=== PATIENT | male | born 1955 | race Caucasian/White ===

== ENCOUNTER 2017-04-12 08:07 | Day surgery (SDC) | payer MEDICAID, OTHER ==
[2017-04-12] MEDS ORDERED: DIAZEPAM 5 MG TAB PO ONE (08:12)
[2017-04-12] MEDS ORDERED: diphenhydrAMINE 25 MG CAP PO ONE ×2 (08:12→09:01)
[2017-04-12] MEDS ORDERED: ASPIRIN EC 325 MG TAB PO ONE ×2 (08:12→09:01)
[2017-04-12] MEDS ORDERED: NS 1,000 ML IV ONE (08:12)
[2017-04-12] MEDS ORDERED: FAMOTIDINE 20 MG TAB PO ONE (08:12)
--- NOTE | 2017-04-12 08:59 | CPEKG ---
Heart Rate: 57 RR Interval: 1053 P-R Interval: 208 QRSD Interval: 110 QT Interval: 412 QTC Interval: 401 P [place]: 74 QRS [place]: -61 T Wave [place]: 66 EKG Severity - ABNORMAL ECG - EKG Impression: SINUS RHYTHM EKG Impression: LEFT ANTERIOR FASCICULAR BLOCK Electronically Signed By: Brian Collazo 14-Apr-2017 12:37:50
[2017-04-12] MEDS ORDERED: FAMOTIDINE 20 MG TAB ONE (09:01)
[2017-04-12] MEDS ORDERED: DIAZEPAM 5 MG TAB ONE (09:02)
[2017-04-12] MEDS ORDERED: LIDOCAINE 1% 300 MG/30 ML SDV ONE (09:14)
[2017-04-12] MEDS ORDERED: fentaNYL 100 MCG/2 ML INJ ONE (09:15)
[2017-04-12] MEDS ORDERED: MIDAZOLAM 2 MG/2 ML VIAL ONE (09:15)
[2017-04-12] MEDS ORDERED: IOPAMIDOL (ISOVUE-370) 150 ML BTL IV ONE ×2 (09:15→09:16)
[2017-04-12 09:25] LABS: % IMMATURE GRANULYOCYTES 0.2 % (0.0-1.1); ABSOLUTE IMMATURE GRANULOCYTES 0.01 10^3/uL (0.00-0.10); ADD DIFF? NO; ADD MORPH? NO; ADD SCAN? NO; ATYPICAL LYMPHOCYTE FLAG 0 (0-99); FRAGMENT RBC FLAG 0 (0-99); HEMATOCRIT 47.3 % (40.0-51.0); HEMOGLOBIN 15.9 g/dL (13.7-17.5); LEFT SHIFT FLG 0 (0-99); LIPEMIA HEMOLYSIS FLAG 80 (0-99); MEAN CELL HEMOGLOBIN CONCENTR. 33.6 g/dL (32.4-36.7); MEAN CELL VOLUME 98.1 fL (81.5-99.8); MEAN PLATELET VOLUME 10.2 fL (8.7-11.7); PLATELET CLUMPS FLAG 0 (0-99); PLATELET COUNT 184 10^3/uL (150-400); RED BLOOD CELL COUNT 4.82 10^6/uL (4.40-6.38); RED CELL DISTRIBUTION WIDTH 13.9 % (11.5-15.2)
[2017-04-12 09:37] LABS: ANION GAP 6 mEq/L (8-16); CARBON DIOXIDE 29 mEq/l (22-31); CHLORIDE 106 mEq/L (97-110); CHOLESTEROL 187 mg/dL (140-220); CREATININE 1.1 mg/dL (0.7-1.3); GLOMERULAR FILTRATION RATE > 60; GLUCOSE 88 mg/dL (70-100); HIGH DENSITY LIPOPROTEIN 55 mg/dL (40-65); LDL/HDL RATIO 2.05 RATIO (1.00-3.64); LOW DENSITY LIPOPROTEIN 113 mg/dL (80-100); MAGNESIUM 2.1 mg/dL (1.6-2.3); NON-HIGH DENSITY LIPOPROTEIN 132 mg/dL (90-129); POTASSIUM 4.2 mEq/L (3.5-5.2); SODIUM 141 mEq/L (134-144); TRIGLYCERIDE 96 mg/dL (40-150); VERY LOW DENSITY LIPOPROTEINS 19 mg/dL (8-25)
[2017-04-12 09:45] LABS: INR 1.16 (0.83-1.16); PROTIME(PATIENT) 14.8 SEC (12.0-15.0)
--- NOTE | 2017-04-12 11:12 | CPIP ---
[f rep st] INVASIVE CARDIAC PROCEDURE PROCEDURES PERFORMED: 1. Left heart catheterization. 2. Left ventriculogram. 3. Right and left coronary arteriogram. COMPLICATIONS: None. CONDITION: At the end of the study excellent. FINDINGS: 1. Angiography left main coronary artery normal. 2. Left anterior descending artery normal. 3. Circumflex coronary artery normal. 4. Right coronary artery is normal and dominant. LEFT HEART CATH: 1. Left ventricular end-diastolic pressure 12 mmHg. 2. No aortic stenosis. LEFT VENTRICULOGRAM: 1. Normal left ventricular chamber dimension. 2. Normal left ventricular systolic function. 3. No regional wall motion abnormalities. 4. 3+ mitral regurgitation. 5. Very large left atrium. The patient has severe mitral regurgitation without evidence of any significant coronary artery dise ase. /[id number]/MODL
[2017-04-12] MEDS ORDERED: ATROPINE SULFATE 1 MG/10 ML SYR IVP PRN (11:34)
[2017-04-12] MEDS ORDERED: OXYCODONE/APAP 5/325 TAB PO PRN (11:34)
[2017-04-12] MEDS ORDERED: ONDANSETRON 4 MG/2 ML VIAL IVP PRN (11:34)
[2017-04-12] MEDS ORDERED: HYDROCODONE/APAP 5/325 TAB PO PRN (11:34)
[2017-04-12] MEDS ORDERED: NITROGLYCERIN 0.4 MG BTL SL PRN (11:34)
== END 2017-04-12 15:30 | disposition home or self-care (01) ==
LOC: FCATH 08:07
PROVIDERS: ATTEND Internal Medicine
PROC: 4A023N7 Measurement of Cardiac Sampling and Pressure, Left Heart, Percutaneous Approach (ICD-10-PCS; principal; 2017-04-12)
PROC: B2151ZZ Fluoroscopy of Left Heart using Low Osmolar Contrast (ICD-10-PCS; principal; 2017-04-12)
PROC: B2111ZZ Fluoroscopy of Multiple Coronary Arteries using Low Osmolar Contrast (ICD-10-PCS; principal; 2017-04-12)
DX: Z09 Encounter for follow-up examination after completed treatment for conditions other than malignant neoplasm (principal); R01.1 Cardiac murmur, unspecified; I34.0 Nonrheumatic mitral (valve) insufficiency; I07.1 Rheumatic tricuspid insufficiency
CPT/HCPCS: J1644; J2250; J3010; Q9967